=== PATIENT | female | born 1955 | race Caucasian/White ===

== ENCOUNTER → 2016-12-21 | Outpatient (CLI) | payer BC ==
[~2016-12-21] MED LIST: ATENOLOL25 MG PO; IBU800 MG PO; VIBRAMYCIN100 MG PO
== END | disposition home or self-care (01) ==
LOC: US 12-19 07:30
DX: N95.0 Postmenopausal bleeding (principal); R93.8 Abnormal findings on diagnostic imaging of other specified body structures

== ENCOUNTER 2017-09-20 17:28 | Emergency (ER) | payer BC ==
[~2017-09-20] VITALS: Ht 165.1 cm; Wt 72.6 kg
--- NOTE | ~2017-09-20 | EKG ---
[place], [place] ELECTROCARDIOGRAM REPORT NAME: JONATHAN TORIBIO UNIT #: [id number] ROOM: DOCTOR: TELMA DRAFT REPORT BIRTHDATE: [birth year] [facility] Test Date: 2017-09-20 Test Time: 18:06:54 Pat Name: JONATHAN TORIBIO Department: Room: Gender: F Back End Web Developer: : 1955 Requested By: CHANDNI MATHEW Order Number: [id number] Reading MD: Brant Alanis MD Measurements Intervals [place] Rate: 106 P: 47 NV: 171 QRS: -32 QRSD: 76 T: 61 QT: 340 QTc: 452 Interpretive Statements Sinus tachycardia LAFB Low voltage, precordial leads Anteroseptal infarct, old Electronically Signed On 09-22-2017 11:07:37 PDT by Brant Alanis MD CM:EKGRPT:ELECTROCARDIOGRAM REPORT [id number] CHANDNI HOLLIS DRAFT REPORT CHANDNI MATHEW MD
[2017-09-20] MEDS ORDERED: CARDIZEM CD180 MG PO (17:54)
[2017-09-20] MEDS ORDERED: PROVERA2.5 MG PO (17:55)
[2017-09-20] MEDS ORDERED: LIPITOR20 MG PO (17:55)
[2017-09-20] MEDS ORDERED: CALCIUM + VITA1 EAC2 PO (17:55)
[2017-09-20] MEDS ORDERED: ESTRADIOL1 EAC4 TD (17:55)
[2017-09-20 18:08] LABS: BASO # 0.1 10*3/uL (0.0-0.1); BASO % 0.6 % (0.0-1.0); EOS # 0.3 10*3/uL (0.0-0.4); EOS % 3.4 % (1.0-4.0); HEMATOCRIT 40.1 % (37.0-47.0); HEMOGLOBIN 13.2 g/dl (12.0-16.0); LYMPH # 3.2 10*3/uL (1.3-4.4); LYMPH % 39.5 % (27.0-41.0); MEAN CELL VOLUME 90.9 fl (81.0-99.0); MEAN CORPUSCULAR HGB 29.9 pg (27.0-31.0); MEAN CORPUSCULAR HGB CONC 32.9 g/dl (33.0-37.0); MEAN PLATELET VOLUME 9.5 fl (9.6-12.3); MONO # 0.6 10*3/uL (0.1-1.0); MONO % 7.9 % (3.0-9.0); NEUT # 3.9 10*3/uL (2.3-7.9); NEUT % 48.1 % (47.0-73.0); PLATELET COUNT AUTOMATED 320 10*3/uL (130-400); RED BLOOD COUNT 4.41 10*6/uL (4.10-5.10); RED CELL DISTRI WIDTH 12.5 % (0-14.5); WHITE BLOOD COUNT 8.1 10*3/uL (4.8-10.8)
[2017-09-20 18:18] LABS: ACT PARTIAL THROMBO TIME 20.6 SECONDS (20.8-31.5); INTERNATIONAL NORM RATIO 0.9 (2.0-3.5)
[2017-09-20 18:25] LABS: BUN 17 mg/dl (7-24); CHLORIDE 109 mmol/L (98-107); CREATININE 0.91 mg/dL (0.55-1.02); POTASSIUM 3.8 mmol/L (3.5-5.1); SODIUM 140 mmol/L (136-145)
[2017-09-20 18:28] LABS: TROPONIN I < 0.015 ng/ml (<0.045)
== END 2017-09-20 19:01 | disposition home or self-care (01) ==
LOC: ED 17:28
PROVIDERS: Emergency Medicine
DX: I47.1 Supraventricular tachycardia (principal); R55 Syncope and collapse; Z79.899 Other long term (current) drug therapy

== ENCOUNTER → 2019-03-01 | Day surgery (SDC) | payer BC ==
[~2019-03-01] MED LIST changes: +CALCIUM + VITA1 EAC2 PO; +CARDIZEM CD180 MG PO; +ESTRADIOL1 EAC4 TD; +LIPITOR20 MG PO; +PROVERA2.5 MG PO
[2019-03-01 12:40] VITALS: BP 120/71
[2019-03-01 13:08] VITALS: BP 111/56
[2019-03-01 13:23] VITALS: BP 112/75
[2019-03-01 13:38] VITALS: BP 121/60
== END | disposition home or self-care (01) ==
LOC: SDC 02-25 14:45
DX: Z12.11 Encounter for screening for malignant neoplasm of colon (principal); K57.30 Diverticulosis of large intestine without perforation or abscess without bleeding; I48.91 Unspecified atrial fibrillation; E78.00 Pure hypercholesterolemia, unspecified; E78.5 Hyperlipidemia, unspecified; Z98.51 Tubal ligation status; Z98.890 Other specified postprocedural states; Z79.899 Other long term (current) drug therapy; Z82.49 Family history of ischemic heart disease and other diseases of the circulatory system; Z80.8 Family history of malignant neoplasm of other organs or systems

== ENCOUNTER 2019-11-10 16:35 | Emergency (ER) | payer OTHER ==
[~2019-11-10] VITALS: Wt 76.7 kg
[2019-11-10 17:10] LABS: BASO # 0.1 10*3/uL (0.0-0.1); BASO % 0.7 % (0.0-1.0); EOS # 0.2 10*3/uL (0.0-0.4); HEMATOCRIT 40.2 % (37.0-47.0); LYMPH # 2.1 10*3/uL (1.3-4.4); LYMPH % 28.3 % (27.0-41.0); MEAN CELL VOLUME 90.5 fl (81.0-99.0); MEAN CORPUSCULAR HGB 29.3 pg (27.0-31.0); MEAN CORPUSCULAR HGB CONC 32.3 g/dl (33.0-37.0); MEAN PLATELET VOLUME 9.1 fl (9.6-12.3); MONO # 0.5 10*3/uL (0.1-1.0); MONO % 6.2 % (3.0-9.0); NEUT # 4.7 10*3/uL (2.3-7.9); NEUT % 62.4 % (47.0-73.0); PLATELET COUNT AUTOMATED 307 10*3/uL (130-400); RED BLOOD COUNT 4.44 10*6/uL (4.10-5.10); RED CELL DISTRI WIDTH 13.5 % (0-14.5); WHITE BLOOD COUNT 7.6 10*3/uL (4.8-10.8)
[2019-11-10 17:21] LABS: ACT PARTIAL THROMBO TIME 24.2 SECONDS (20.0-32.1); INTERNATIONAL NORM RATIO 0.9 (2.0-3.5)
[2019-11-10 17:31] LABS: ALBUMIN 3.9 gm/dl (3.1-4.5); ALKALINE PHOSPHATASE 100 U/L (45-117); BUN 16 mg/dl (7-24); CHLORIDE 110 mmol/L (98-107); CREATININE 0.85 mg/dL (0.55-1.02); POTASSIUM 3.5 mmol/L (3.5-5.1); SGOT/AST 14 IU/L (3-35); SGPT/ALT 22 U/L (12-78); SODIUM 142 mmol/L (136-145); TOTAL PROTEIN 7.4 gm/dL (6.4-8.2)
[2019-11-10 17:34] LABS: TROPONIN I < 0.015 ng/ml (<0.045)
== END 2019-11-10 18:42 | disposition home or self-care (01) ==
LOC: ED 16:35
PROVIDERS: Emergency Medicine
DX: I47.1 Supraventricular tachycardia (principal); I48.91 Unspecified atrial fibrillation; E78.00 Pure hypercholesterolemia, unspecified; Z79.899 Other long term (current) drug therapy

== ENCOUNTER 2020-01-03 06:42 | Emergency (ER) | payer OTHER ==
[~2020-01-03] VITALS: Ht 160 cm; Wt 72.6 kg
[2020-01-03 07:22] LABS: BASO % 0.7 % (0.0-1.0); EOS # 0.2 10*3/uL (0.0-0.4); EOS % 3.7 % (1.0-4.0); LYMPH # 1.8 10*3/uL (1.3-4.4); LYMPH % 31.4 % (27.0-41.0); MEAN CELL VOLUME 92.2 fl (81.0-99.0); MEAN CORPUSCULAR HGB 29.8 pg (27.0-31.0); MEAN CORPUSCULAR HGB CONC 32.3 g/dl (33.0-37.0); MEAN PLATELET VOLUME 8.9 fl (9.6-12.3); MONO # 0.3 10*3/uL (0.1-1.0); MONO % 5.8 % (3.0-9.0); NEUT # 3.3 10*3/uL (2.3-7.9); NEUT % 58.2 % (47.0-73.0); PLATELET COUNT AUTOMATED 298 10*3/uL (130-400); RED BLOOD COUNT 4.23 10*6/uL (4.10-5.10); RED CELL DISTRI WIDTH 12.7 % (0-14.5); WHITE BLOOD COUNT 5.7 10*3/uL (4.8-10.8)
[2020-01-03 07:43] LABS: ALBUMIN 3.6 gm/dl (3.1-4.5); ALKALINE PHOSPHATASE 101 U/L (45-117); BUN 10 mg/dl (7-24); CHLORIDE 110 mmol/L (98-107); SGOT/AST 14 IU/L (3-35); SGPT/ALT 19 U/L (12-78); SODIUM 142 mmol/L (136-145); TOTAL PROTEIN 6.8 gm/dL (6.4-8.2)
[2020-01-03 07:45] LABS: TROPONIN I < 0.015 ng/ml (<0.045)
== END 2020-01-03 07:57 | disposition home or self-care (01) ==
LOC: ED 06:42
PROVIDERS: Emergency Medicine
DX: I47.1 Supraventricular tachycardia (principal); Z79.899 Other long term (current) drug therapy